=== PATIENT | male | born 1950 | race Caucasian/White ===

== ENCOUNTER 2018-05-09 18:38 | Emergency (ER) | payer OTHER, MEDICAID ==
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
[2018-05-09 20:08] VITALS: BP 155/74
== END 2018-05-09 20:07 ==
DX: S60.811A Abrasion of right wrist, initial encounter (principal); S60.812A Abrasion of left wrist, initial encounter; I10 Essential (primary) hypertension; V43.52XA Car driver injured in collision with other type car in traffic accident, initial encounter; Y92.410 Unspecified street and highway as the place of occurrence of the external cause; Y99.8 Other external cause status; Y93.89 Activity, other specified